=== PATIENT | female | born 1975 | race Caucasian/White ===

== ENCOUNTER 2016-12-04 07:36 | Day surgery (SDC) | payer SELFPAY ==
[~2016-12-04] VITALS: Ht 160 cm; Wt 54.4 kg
[~2016-12-04 07:36] MED LIST: Lidocaine 1% 10mg/ml/Epi 0.005mg/ml 30ml vial INJ ONE; Maxitrol Opth Oint 3.5gm ONE; Povidone-Iodine 5% opth solution ONE
[2016-12-04 08:32] VITALS: BP 109/78
[2016-12-04] MEDS ORDERED: SERTRALINE HCL50 MG ORAL (08:40)
[2016-12-04] MEDS ORDERED: WELLBUTRIN SR150 M1 PO (08:40)
[2016-12-04] MEDS ORDERED: ARMOUR THYROID30 MG ORAL (08:40)
[2016-12-04] MEDS ORDERED: NS Irrig 1000ml IRRIG ONE (10:40)
[2016-12-04] MEDS ORDERED: Bacitracin Oint 15gm Tube TOPIC ONE (12:01)
[2016-12-04 12:10] VITALS: BP 117/72
--- NOTE | 2016-12-04 12:15 | Pre-Procedure Note/Attestation ---
Pre-Procedure Note/Attestation Complete Prior to Procedure Planned Procedure: bilateral Procedure Narrative: Upper blepharoplasty Indications for Procedure Pre-Operative Diagnosis: Upper lid blepharochalasis Attestation I attest that I discussed the nature of the procedure; its benefits; risks and complications; and alternatives (and the risks and benefits of such alternatives ), prior to the procedure, with the patient (or the patient's legal entry level account representative). I attest that, if there was a reasonable possibility of needing a blood transfusion, the patient (or the patient's legal entry level account representative) was given the [facility] standardized written summary, pursuant to the [employer] M Shania Blood Safety Act ([place] Health and Safety Code # 1645, as amended). I attest that I re-evaluated the patient just prior to the surgery and that there has been no change in the patient's H&P, except as documented below: VIVIEN BRADSHAW M.D. Dec 04, 2016 12:15
--- NOTE | 2016-12-04 12:16 | Operative Note - PDOC ---
Operative Note Operative Note Pre-op Diagnosis: Upper lid blepharochalasis Post-op Diagnosis: same as pre-op Surgeon: Jani Specimen: none Complications: none Fluids: None Estimated Blood Loss: none Drains: none Packing: None Implant(s) used?: No VIVIEN BRADSHAW M.D. Dec 04, 2016 12:16
--- NOTE | 2016-12-05 02:30 | Operative Note - Dictated ---
DATE OF OPERATION: 12/04/2016 PREOPERATIVE DIAGNOSIS: Upper eyelid blepharochalasis. POSTOPERATIVE DIAGNOSIS: Upper eyelid blepharochalasis. PROCEDURE: Bilateral upper blepharoplasty. SURGEON: Inder Gunter M.D. CLASSROOM TECHNOLOGY COACH: None. ANESTHESIA: Local by surgeon. PROCEDURE IN DETAIL: After consent was obtained, the patient was taken to the operating room and placed in supine on the table. Adequate local anesthesia was infiltrated into the upper eyelids and then, area was marked and then, incisions were made along the marked areas. Prepping and draping was then done sterilely and the right upper blepharoplasty was done next by deepening the incision through the dermis on the right side and then excising the skin. A 3 mm orbicularis oculi muscle was next excised and the orbital septum was generally cauterized to make a contract, was redundant. A 6-0 Prolene sutures were used to proximate the incision and interrupted in running subcuticular fashion. The same identical procedure was performed on the left side with similar findings and resolved. The patient was taken to the recovery in excellent condition postoperatively. Inder Gunter DR: CINDY JOB#: [id number] CC:
== END 2016-12-04 14:15 | disposition home or self-care (01) ==
LOC: SUR 07:36
DX: H02.34 Blepharochalasis left upper eyelid (principal); H02.31 Blepharochalasis right upper eyelid; Z87.442 Personal history of urinary calculi; Z80.1 Family history of malignant neoplasm of trachea, bronchus and lung; Z98.51 Tubal ligation status
CPT/HCPCS: 81025